=== PATIENT | female | born 1975 | race Caucasian/White ===

== ENCOUNTER 2019-10-21 16:06 | Outpatient (CLI) | payer BC, SELFPAY ==
[2019-10-21 16:18] LABS: Basophils Absolute Auto 0.05 K/mm3 (0.00-0.10); Basophils Percent Auto 0.8 % (0.0-1.0); Eosinophils Absolute Auto 0.11 K/mm3 (0.02-0.50); Eosinophils Percent Auto 1.7 % (1.0-6.0); Hematocrit 38.7 % (35.0-49.0); Hemoglobin 13.1 g/dL (12.0-15.0); Immature Granulocyte Absolute 0.02 K/mm3 (0.00-0.00); Immature Granulocyte Percent A 0.3 % (0.0-0.0); Lymphocytes Percent Auto 31.5 % (18.0-42.0); Mean Corpuscular HGB Conc 33.9 g/dL (32.0-36.0); Mean Corpuscular Volume 88.6 fL (78.0-102.0); Mean Platelet Volume 9.7 fl (9.2-11.8); Monocytes Absolute Auto 0.46 K/mm3 (0.10-0.90); Monocytes Percent Auto 6.9 % (2.0-11.0); Neutrophils Absolute Auto 3.9 K/mm3 (1.7-7.2); Neutrophils Percent Auto 58.8 % (50.0-70.0); Platelet Count Result 296 K/mm3 (150-420); Red Blood Count 4.37 M/mm3 (4.20-5.40); Red Cell Distribution Width 12.2 % (11.6-14.4); White Blood Count 6.7 K/mm3 (4.8-10.8)
[2019-10-21 17:30] LABS: Alanine Aminotransferase 24 U/L (14-59); Albumin Level 4.2 g/dL (3.4-5.0); Alkaline Phosphatase 64 U/L (46-116); Aspartate Amino Transferase 25 U/L (15-37); Bilirubin,Total 0.5 mg/dL (0.00-1.00); Blood Urea Nitrogen 12 mg/dL (7-18); Calcium 9.1 mg/dL (8.5-10.1); Carbon Dioxide 25 mmol/L (21-32); Chloride 105 mmol/L (98-108); Cholesterol 220 mg/dL (0-200); Estimated Glomerular Filt Rate > 60; Glucose 87 mg/dL (70-99); HDL Direct 72 mg/dL (40-60); LDL Cholesterol Calculated 134 mg/dL (<130); Osmolality Calculated 290 mOsm/kg (285-295); Sodium 141 mmol/L (136-145); Total Protein 7.6 g/dL (6.4-8.2); Triglycerides 71 mg/dL (0-150)
[2019-10-23 20:14] LABS: Vitamin D 25 Hydroxy 29 ng/mL (30-100)
== END 2019-10-21 16:07 | disposition home or self-care (01) ==
LOC: CHSLAB 16:09
PROVIDERS: PCP Nurse Practitioner Family; Visit Provider Nurse Practitioner Family
DX: R03.0 Elevated blood-pressure reading, without diagnosis of hypertension (principal); E66.9 Obesity, unspecified; R73.01 Impaired fasting glucose
CPT/HCPCS: 36415; 80053; 80061; 82306; 83036; 85025

== ENCOUNTER 2020-03-13 15:04 | Outpatient (CLI) | payer BC, SELFPAY ==
[2020-03-13 16:08] LABS: Thyroid Stimulating Hormone Reflex 2.35 u/IU/mL (0.36-3.74)
== END 2020-03-13 15:05 | disposition home or self-care (01) ==
LOC: CHSLAB 15:06
PROVIDERS: PCP Family Medicine; Visit Provider Family Medicine
DX: R03.0 Elevated blood-pressure reading, without diagnosis of hypertension (principal)
CPT/HCPCS: 36415; 84443

== ENCOUNTER 2021-11-16 11:50 | Outpatient (CLI) | payer BC, SELFPAY ==
--- NOTE | ~2021-11-16 | MM_ITS ---
EXAMINATION: MM screening [facility] BI w freddie HISTORY: Screening TECHNIQUE: Craniocaudal and mediolateral oblique 3-D tomosynthesis images were obtained and synthetic 2-D images were generated. CAD analysis was submitted and interpreted. COMPARISON: 08/23/2016 BREAST PARENCHYMAL COMPOSITION: There are scattered areas of fibroglandular density. FINDINGS: There is no evidence of suspicious mass, calcification, or architectural distortion to sugg est malignancy in either breast. There has been no suspicious interval change. There is no longer coa rse calcification in the left breast, consistent with fat necrosis. IMPRESSION: 1. No mammographic evidence of malignancy. 2. Recommend routine screening mammography in one year. BI-RADS Category 1: Negative Reviewed, dictated and finalized at location A.
== END 2021-11-16 11:51 | disposition home or self-care (01) ==
LOC: CHSIMG 11:52
PROVIDERS: PCP Family Medicine; Visit Provider Obstetrics & Gynecology
DX: Z12.31 Encounter for screening mammogram for malignant neoplasm of breast (principal)
CPT/HCPCS: 77063; 77067

== ENCOUNTER 2021-12-09 09:46 | Outpatient (CLI) | payer BC, SELFPAY ==
[2021-12-09 10:05] LABS: Basophils Percent Auto 0.6 % (0.2-1.2); Eosinophils Absolute Auto 0.1 K/mm3 (0-0.3); Hematocrit 39.9 % (37.0-47.0); Hemoglobin 12.7 g/dL (12.0-15.0); Immature Granulocyte Absolute 0.01 K/mm3 (0.00-0.031); Immature Granulocyte Percent A 0.1 % (0-0.5); Lymphocytes Absolute Auto 1.84 K/mm3 (0.9-3.2); Lymphocytes Percent Auto 27.5 % (18.3-44.2); Mean Corpuscular HGB Conc 31.8 g/dl (32-36); Mean Corpuscular Hemoglobin 28.6 pg (26-34); Mean Corpuscular Volume 89.9 fl (80-100); Mean Platelet Volume 10.5 fl (7.4-10.4); Monocytes Absolute Auto 0.4 K/mm3 (0.1-0.6); Monocytes Percent Auto 6.3 % (2.6-8.5); Neutrophils Absolute Auto 4.3 K/mm3 (1.3-6.7); Neutrophils Percent Auto 64.5 % (45.5-73.1); Platelet Count Result 268 k/mm3 (150-375); Red Blood Count 4.44 M/mm3 (4.2-5.4); Red Cell Distribution Width 12.7 % (11.5-14.5); White Blood Count 6.7 K/mm3 (4.5-10.0)
== END 2021-12-09 09:47 | disposition home or self-care (01) ==
LOC: ANHSURGERY 09:51
PROVIDERS: PCP Family Medicine; Visit Provider Obstetrics & Gynecology
DX: R10.2 Pelvic and perineal pain (principal); Z01.818 Encounter for other preprocedural examination
CPT/HCPCS: 36415; 85025; 86850; 86900; 86901

== ENCOUNTER 2021-12-10 00:53 | Day surgery (SDC) | payer BC, SELFPAY ==
[2021-12-01 12:11] VITALS: BMI 33.0
--- NOTE | 2021-12-01 12:25 | PC.NURSE ---
Report to the Outpatient Waiting Room, entrance under the green pavilion located off [facility], at time 7:30 on date 12/10/21. OR Time: 9:30. - You and your visitor will be asked a series of questions to screen for COVID 19 for your protection. - A mask is required within the hospital. One visitor will be allowed to accompany the patient into the hospital. Patients visitor will be instructed to remain with patient at all times or leave the building. We will allow the visitor to come back to the postoperative area when patient is ready. Preoperative COVID Testing Requirements: No COVID Test needed if: (proof is required; if not received patient will have Rapid Test prior to entry) - Patient has received COVID Vaccine at least 14 days prior to procedure date or - Patient has positive COVID test result within last 90 days of surgery date. COVID Test needed if above criteria is not met Patients may have clear liquids (water, carbonated beverages, clear teas, apple juice) until 3 hours prior to surgery (6:30) with a maximum of 20 ounces. - No food from midnight until time of surgery Take the following medications with a SIP of water the morning of surgery: DOXYCYCLINE Medications to discontinue per physician: VITAMINS/SUPPLEMENTS Date to take last dose: 12/07/21 Please no make-up, nail slovenian, hairspray, perfume, deodorant, or body powder the day of surgery. No jewelry (including any body piercings) or valuables the day of surgery, leave them at home. Please take a shower or bath the night before, or the morning of, surgery with an antibacterial soap. Wear comfortable, loose fitting clothing. - Jewelry must be removed prior to entering the operating room. Rings and piercings that are not removed may be cut off. - The hospital will not accept responsibility for valuables. - Please leave all valuables, including medications, at home the day of surgery. If you are going home after surgery, a licensed jitney driver must drive you home. - NO public transportation without another adult. - We recommend that an adult stay with you for 24 hours following discharge. - We also recommend that you do not drive, make important decision, drink alcoholic beverages, or take any drugs that were not prescribed by your health care provider for at least 24 hours after your discharge time. Follow any additional instructions given to you from your surgeon. Telephone instructions given to JONO RADER and asked if any additional questions and then verbalized understanding. Patient advised to call surgeon office or pre surgery nurse liaison [phone] if any additional questions.
--- NOTE | 2021-12-09 08:26 | PM.IMHP ---
H&P: HPI History of Present Illness Date/Time: 12/09/21 08:26 45-year-old female admitted for robotic total vaginal hysterectomy and bilateral salpingectomy secondary to pelvic pain bleeding and dyspareunia. Risks and benefits reviewed including min exclusive of , aspiration pneumonia, bleeding, transfusion, perforation injury to bowel, bladder, ureter, or other internal organs with need for open laparotomy. She received the [employer] handout entitled hysterectomy as well as the [facility] handout. She had all questions answered and asked to proceed Chief Complaint: Pelvic pain Review of Systems Review of Systems: All systems reviewed & are unremarkable except as noted in HPI and below PMFSH Past Medical History Medical History Obesity, Class I, BMI 30-34.9 Sting of hornets, wasps, and bees causing poisoning and toxic reactions (05/04/17) Surgical History Surgical History H/O left knee surgery H/O: section Hx of breast reduction, elective Family History Family History Other Diabetes mellitus Family history of arthritis Family history of malignant neoplasm Family history of seizure disorder Hypertension Social History Social History Smoking status: Never smoker Alcohol intake: never Substance use: never Substance use type: does not use Additional living arrangements comments: has 2 children Additional occupation/education comments: [employer] Gender identity (if verbalized by the patient): Female Spiritual care concerns: No Meds Home Medications and Allergies Home Medications Medication Instructions Recorded Confirmed Type cholecalciferol (vitamin D3) 50 2,000 unit PO DAILY #90 cap 10/25/19 12/01/21 Rx mcg (2,000 unit) capsule doxycycline monohydrate 100 mg 100 mg PO DAILY cap 03/26/21 12/01/21 History capsule fexofenadine [Tereza] 180 mg PO DAILY 12/01/21 12/01/21 History Allergies Allergy/AdvReac Type Severity Reaction Status Date / Time Bee stings Allergy Intermediate Swelling Uncoded 12/01/21 12:09 Exam Const: General: no acute distress Eyes: General: appearance normal, both eyes and all related structures Neck: Neck: supple and no JVD Thyroid: thyroid normal Resp: Effort & Inspection: normal respiratory effort Auscultation: clear to auscultation bilaterally Cardio: Rate: regular rate Rhythm: regular rhythm GI: Inspection: non-distended GI Palp: Yes Soft to palpation, No Tenderness to palpation present (GI) and No Guarding due to palpation present (GI) Auscultation: normal bowel sounds : External Female Exam: normal external appearance Speculum Exam - Vagina: normal appearance of the vagina Speculum Exam - Cervix: normal appearance of the cervix Bimanual exam- vagina & uterus: enlarged and Uterine tenderness Bimanual Exam- Adnexa, other: normal adnexae Skin: General skin exam: no rashes or lesions noted Extrem: General: normal to inspection and no edema Psych: Mental Status: mental status grossly normal Affect: normal affect Assessment and Plan Additional Plan Impression: Pelvic pain/irregular bleeding/dyspareunia Plan: Robotic total hysterectomy and bilateral salpingectomy
[2021-12-10] VITALS (8 sets, daily range): BP systolic 120–142; BP diastolic 67–77; PULSE 43–72; RESP 12–20; TEMP 36.2–36.9; O2SAT 98–100
--- NOTE | 2021-12-10 07:19 | WPDHPUPDATE1 ---
History and Physical Update Update Date/Time: 12/10/21 07:19 History and Physical has been reviewed, including an updated exam of the patient. There are NO changes in the patient's condition. Risks, benefits, and alternatives have been discussed and questions answered. Patient agrees to proceed with procedure.
[2021-12-10] MEDS: ACETAMINOPHEN 500 MG TABLET 1000 MG PO (08:12)
[2021-12-10] MEDS: LACTATED RINGERS 1,000 ML 30 ML IV CONT ×2 (08:15→10:55)
[2021-12-10] MEDS: KETOROLAC 15 MG/ML VIAL (*BKC) IV PUSH (08:16)
--- NOTE | 2021-12-10 09:10 | P.PNAN_ITS ---
Anes - Initial Pre Proc Eval Procedure: Operation Date: 12/10/21 09:30 Proposed Procedures p Robotic Assisted Total Vaginal Hysterectomy with Bilateral Salpingectomy - Cain Redding MD Date/Time: 12/10/21 09:10 Surgeon: Cain Redding MD Pre Op Diagnosis: pelvic pain, uterine prolpase, bleeding Patient Data Age: 45 Gender: F Height: 1.63 m Weight: 86.45 kg Last Vital Signs Temp 36.6 C 12/10/21 07:33 Pulse 63 12/10/21 07:33 Resp 20 12/10/21 07:33 BP 120/71 12/10/21 07:33 Pulse Ox 99 12/10/21 07:33 Allergies Allergy/AdvReac Type Severity Reaction Status Date / Time Bee stings Allergy Intermediate Swelling Uncoded 12/10/21 07:37 Home Medications Medication Instructions Recorded Confirmed Type cholecalciferol (vitamin D3) 50 2,000 unit PO DAILY #90 cap 10/25/19 12/10/21 Rx mcg (2,000 unit) capsule doxycycline monohydrate 100 mg 100 mg PO DAILY cap 03/26/21 12/10/21 History capsule fexofenadine [Tereza] 180 mg PO DAILY 12/01/21 12/10/21 History hydrocodone-acetaminophen 1 tablet PO Q4H PRN #30 tablet 12/10/21 Rx Patient hx anesthesia problems: none Family hx anesthesia problems: none Results Review: All pre-operative results and documents have been reviewed as part of the pre-operative evaluation. [facility] Past Medical History Medical History (Updated 12/10/21 @ 07:20 by Cain Redding MD) Obesity, Class I, BMI 30-34.9 Sting of hornets, wasps, and bees causing poisoning and toxic reactions (05/04/17) Surgical History Surgical History H/O left knee surgery H/O: section Hx of breast reduction, elective Family History Family History Other Diabetes mellitus Family history of arthritis Family history of malignant neoplasm Family history of seizure disorder Hypertension Social History Social History Smoking status: Never smoker Alcohol intake: never Substance use: never Substance use type: does not use Living arrangements: with family Additional living arrangements comments: has 2 children Additional occupation/education comments: [employer] Gender identity (if verbalized by the patient): Female Spiritual care concerns: No Anes - Eval Final PreProcedure Day of Procedure 12/10/21 09:10 Patient weight: obese Heart: regular rate and rhythm Lungs: clear to auscultation Airway: Mallampati scale class II Neurological: alert and oriented Last oral intake: >/= 8 hours ASA classification: II Emergent: no Anesthetic plan: proceed Anesthesia type and monitoring: general Results Review: All pre-operative results and documents have been reviewed as part of the pre-operative evaluation. Informed Consent: The patient's anesthetic plan and its attendant risks and benefits were discussed with the patient/family/POA. Questions were solicited and answers provided to the satisfaction of the patient/family/POA.
--- NOTE | 2021-12-10 10:40 | W.PM.PROC2 ---
Procedure Note - Detailed Date of Procedure 12/10/21 Pre-op Diagnosis pelvic pain, uterine prolpase, bleeding Post-op Diagnosis Same Procedure Performed Robotic total vaginal hysterectomy salpingectomy Surgeon Cain Redding MD Anesthesia General Indications Is a 45-year-old female with prolapse pain bleeding refractory to medical therapy Findings Enlarged uterus. Normal-appearing tubes bilaterally. Fair amount of adhesions anteriorly Description of Procedure Patient is prepped draped in the normal sterile fashion placed in the dorsal lithotomy position. Under excellent general trach anesthesia weighted speculum placed in posterior fornix vagina. Anterior lip of the cervix grasped with a single-tooth tenaculum. The uterus sounded to 10cm. Serial dilatation with fragmented dilators performed followed by passage of the 10. DIDIER and the 2. 0.5 cold cup. Next the 16 Danish catheter was placed in the bladder and clear urine was noted. The weighted speculum and the single-tooth removed. Gloves were changed. A supraumbilical incision made the Veress needle passed in the abdomen. Abdomen filled with CO2 gas [id number]. The 8mm trocar advanced in the abdomen. Downside visualized no injury seen. Gas placed in the abdomen patient placed in Trendelenburg. Right and left lateral quadrant incision made 8mm trocars advanced under direct visualization assuring no injury. Right upper quadrant incision was made and the 8mm trocar advanced under direct visualization assuring no injury. The robot was docked. Attention was turned to the certified travel counselor. Multiple adhesions were seen anteriorly these were easily sharply dissected with the omentum to the anterior abdominal wall by using monopolar cautery. There was a fair amount of scarring from uterus to the anterior wall. Layer by layer this was sharply dissected with monopolar cautery until the bladder could be seen. The round ligament was clamped grasp on the left clamped, burned, cut in anteriorly a bladder flap formed by sharply dissecting the peritoneum and reflecting the bladder caudally away from the cervix and uterus to the opposite round ligament which was clamped, burned, cut. Next the left fallopian tube was skeletonized and sharply dissected away from the ovarian complex left attached to its uterine origination. In like fashion the right fallopian tube was removed by sharply dissecting it away from the ovarian complex and leaving it attached to the uterine origination. Next the left utero-ovarian ligament was skeletonized to conserve the left ovary this was clamped, burned, cut and brought to the level of the previously cut round ligament. In like fashion the right ovary was conserved by sharply dissecting the utero-ovarian ligament clamping burning cutting and bring it to the round ligament on the right. Next the left cardinal and broad ligaments were serially skeletonized clamping burning cutting and bringing this down laterally clogging cervix and uterus until you large uterine tortuous vessels were seen on the left these were individually clamped,, cut. The cardinal burned and broad ligaments on the right were serially skeletonized clamping burning cutting and hugging the cervix and uterus until the uterine vessels could be seen on the right these were sharp Sophie dissected by clamping burning cutting them individually. Blanching the uterus was noted in a colpotomy incision was made. Cervix uterus and tubes removed through the vagina. The vagina was then closed with continuous running 0V lock from lateral edge to lateral edge back to the midline. Irrigation undertaken until clear and all pedicles appeared dry. This was sprinkled with Mather term and the robot was undocked. The gas removed from the abdomen. The trocars removed and the incisions closed with 4 Monocryl and glue. The patient was awakened. All sponge, needle, instrument counts were correct. There were no immediate complica
[2021-12-10] MEDS: fentaNYL CITRATE INJ (*CRX) 100 MCG/2 ML VIAL 25 MCG IV PUSH ×2 (11:35→11:38)
--- NOTE | 2021-12-10 12:31 | PC.NURSE ---
This patient, Yesenia Angel, was received from PACU per bed on 12/10/21 at 1200. Patient/family oriented to unit policies and routines
[2021-12-10] MEDS: DEXTROSE 5%/LACTATED RINGERS 1,000 ML 125 ML IV CONT (12:38)
[2021-12-10] MEDS: KETOROLAC 30 MG/ML VIAL (*BKC) IV PUSH ×2 (14:15→20:15)
[2021-12-10] MEDS: HYDROcodone/acetaminophen (*CRX) 5-325 MG TABLET 1 TAB PO ×2 (14:15→20:16)
[2021-12-10] MEDS: DOCUSATE SODIUM 100 MG CAPSULE PO (20:16)
[2021-12-11 01:30] VITALS: BP 98/45; PULSE 58; RESP 16; TEMP 37; O2SAT 99
[2021-12-11 04:17] VITALS: BP 98/53; PULSE 60; RESP 14; TEMP 36.5; O2SAT 98
[2021-12-11 05:41] LABS: Basophils Percent Auto 0.2 % (0.2-1.2); Eosinophils Absolute Auto 0.1 K/mm3 (0-0.3); Eosinophils Percent Auto 0.5 % (0-4.4); Hematocrit 34.4 % (37.0-47.0); Immature Granulocyte Absolute 0.03 K/mm3 (0.00-0.031); Immature Granulocyte Percent A 0.3 % (0-0.5); Immature Platelet Fraction Pct 5.3 % (0.9-11.2); Lymphocytes Absolute Auto 2.51 K/mm3 (0.9-3.2); Lymphocytes Percent Auto 22.9 % (18.3-44.2); Mean Corpuscular Hemoglobin 29.6 pg (26-34); Mean Corpuscular Volume 92.5 fl (80-100); Mean Platelet Volume 11.8 fl (7.4-10.4); Monocytes Absolute Auto 0.7 K/mm3 (0.1-0.6); Monocytes Percent Auto 6.6 % (2.6-8.5); Neutrophils Absolute Auto 7.6 K/mm3 (1.3-6.7); Neutrophils Percent Auto 69.5 % (45.5-73.1); Platelet Count Result 237 k/mm3 (150-375); Red Blood Count 3.72 M/mm3 (4.2-5.4)
--- NOTE | 2021-12-11 06:14 | PM.DS ---
DS: Admitting Diagnosis Discharge Date for 12/11/2021 Admitting Diagnosis pelvic pain /enlarged uterus/dyspareunia DS: Summary Hospital Course Hospital Course: patient was admitted for total vaginal hysterectomy and bilateral salpingectomy. Procedure was unremarkable. Prieb see the operative report for full details. She remained afebrile. She was up, voiding difficulty, ambulating, generally without complaints. Time Spent with Patient Time attestation: Total time spent providing and/or coordinating discharge services: Exam Const: General: no acute distress Eyes: General: appearance normal, both eyes and all related structures Neck: Neck: supple and no JVD Thyroid: thyroid normal Resp: Effort & Inspection: normal respiratory effort Auscultation: clear to auscultation bilaterally Cardio: Rate: regular rate Rhythm: regular rhythm GI: Inspection: non-distended GI Palp: Yes Soft to palpation, No Tenderness to palpation present (GI) and No Guarding due to palpation present (GI) Auscultation: normal bowel sounds : General: Yes bladder normal to palpation External Female Exam: normal external appearance Speculum Exam - Vagina: normal vaginal discharge and No vaginal bleeding Speculum Exam - Cervix: nontender Bimanual exam- vagina & uterus: bladder normal to palpation and No Cervical tenderness present OB/external & speculum: No vaginal bleeding Skin: General skin exam: no rashes or lesions noted Extrem: General: normal to inspection and no edema Psych: Mental Status: mental status grossly normal Affect: normal affect DS: Data Data Completed and Pending Pending studies at discharge: Pending at discharge 12/10/21 10:12 Surgical [PTH] Routine Labs on day of discharge: Labs from last 24 hours 12/11/21 04:29 WBC Pending RBC Pending Hgb Pending Hct Pending MCV Pending MCH Pending MCHC Pending RDW Pending Plt Count Pending MPV Pending Immature Gran % (Auto) Pending Neut % (Auto) Pending Lymph % (Auto) Pending Weber % (Auto) Pending Eos % (Auto) Pending Baso % (Auto) Pending Lymph # (Auto) Pending Weber # (Auto) Pending Eos # (Auto) Pending Baso # (Auto) Pending Abs Immat Gran (auto) Pending Absolute Neuts (auto) Pending Absolute Nucleated RBC Pending Nucleated RBC % Pending Discharge Plan Discharge Patient Disposition: Home, Self-Care Stand Alone Forms: General Discharge Instructions Discharge Medications: New hydrocodone-acetaminophen 5-325 mg tablet 1 tablet PO Q4H PRN (Reason: pain) Qty: 30 RF: 0 No Action doxycycline monohydrate 100 mg capsule 100 mg PO DAILY RF: 0 fexofenadine [Tereza] 180 mg Tablet 180 mg PO DAILY RF: 0 cholecalciferol (vitamin D3) 50 mcg (2,000 unit) capsule 2,000 unit PO DAILY Qty: 90 RF: 1
--- NOTE | 2021-12-11 06:15 | PM.GYNPNOP ---
NURSING INFORMATICS ANALYST - A/P Postoperative Procedures: Procedures Operation Date: 12/10/21 09:30 Actual Procedure Side Surgeon p Robotic Assisted Total Vaginal Hysterectomy with Bilateral Salpingectomy Bilateral Cain Redding MD Time Spent With Patient Time: Total time spent is greater than 50% in coordination of care (as documented) at patient's floor/unit and/or counseling patient: Time with patient: less than 15 minutes NURSING INFORMATICS ANALYST- PN:Subj Post-Op Subjective Date/time seen: 12/11/21 06:15 Subjective: patient has no complaints and patient desires discharge Review of Systems Review of Systems: All systems reviewed & are unremarkable except as noted in HPI and below Exam Const: General: no acute distress Eyes: General: appearance normal, both eyes and all related structures Neck: Neck: supple and no JVD Thyroid: thyroid normal Resp: Effort & Inspection: normal respiratory effort Auscultation: clear to auscultation bilaterally Cardio: Rate: regular rate Rhythm: regular rhythm GI: Inspection: non-distended GI Palp: Yes Soft to palpation, No Tenderness to palpation present (GI) and No Guarding due to palpation present (GI) Auscultation: normal bowel sounds : General: Yes bladder normal to palpation External Female Exam: normal external appearance Speculum Exam - Vagina: normal vaginal discharge and No vaginal bleeding Speculum Exam - Cervix: nontender Bimanual exam- vagina & uterus: bladder normal to palpation and No Cervical tenderness present OB/external & speculum: No vaginal bleeding Skin: General skin exam: no rashes or lesions noted Extrem: General: normal to inspection and no edema Psych: Mental Status: mental status grossly normal Affect: normal affect NURSING INFORMATICS ANALYST - PN: Obj Data Vital Signs Vital Signs: Vital Signs - 24 hr 12/10/21 07:33 12/10/21 10:55 12/10/21 11:10 Temperature 97.9 F 97.1 F L Pulse Rate 63 72 43 L Respiratory Rate 20 14 12 Blood Pressure 120/71 123/67 142/71 H Pulse Oximetry 99 100 100 12/10/21 11:25 12/10/21 11:40 12/10/21 12:10 Temperature 97.3 F L Pulse Rate 48 L 48 L 48 L Respiratory Rate 15 13 15 Blood Pressure 136/72 128/72 126/75 Pulse Oximetry 100 100 98 12/10/21 17:00 12/10/21 19:00 12/11/21 01:30 Temperature 97.7 F 98.5 F 98.6 F Pulse Rate 54 L 53 L 58 L Respiratory Rate 18 16 16 Blood Pressure 127/76 132/77 98/45 L Pulse Oximetry 99 99 12/11/21 04:17 Temperature 97.7 F Pulse Rate 60 Respiratory Rate 14 Blood Pressure 98/53 L Pulse Oximetry 98 Intake/Output Intake/Output: Intake & Output 12/08/21 12/09/21 12/10/21 12/11/21 23:59 23:59 23:59 23:59 Intake Total 1050 Output Total 685 Balance 365 Meds/Results Medications: Active Medications Generic Name Dose Route Start Last Admin Trade Name Freq PRN Reason Stop Dose Admin Hydrocodone Bitart/Acetaminophen 1 tab 12/10/21 11:50 12/10/21 20:16 Hydrocodone/Acetaminophen (*Crx) 5-325 Mg Tablet PO 1 tab Q3H PRN Administration Pain Rated 5 or Less Hydrocodone Bitart/Acetaminophen 1 tab 12/10/21 11:50 Hydrocodone/Acetaminophen (*Crx) 10-325 Mg Tablet PO Q3H PRN Pain Rated 6 or Greater Docusate Sodium 100 mg 12/10/21 17:00 12/10/21 20:16 Docusate Sodium 100 Mg Capsule PO 100 mg BID ASUNCION Administration Enoxaparin Sodium 40 mg 12/11/21 09:00 Enoxaparin 40 Mg/0.4 Ml Syringe SUB-Q DAILY ASUNCION Dextrose/Lactated Ringer's 1,000 mls @ 125 mls/hr 12/10/21 11:50 12/10/21 20:28 Dextrose 5%/Lactated Ringers IV CONT Not Given .Q8H ASUNCION Ibuprofen 600 mg 12/10/21 11:50 Ibuprofen 600 Mg Tablet PO Q6H PRN Cramping Ketorolac Tromethamine 30 mg 12/10/21 11:50 12/10/21 20:15 Ketorolac 30 Mg/Ml Vial (*Bkc) IV PUSH 12/15/21 11:49 30 mg Q6H PRN Administration Pain Rated 4-6 Naloxone HCl 0.1 mg 12/10/21 11:50 Naloxone Hcl 0.4 Mg/Ml Vial IV PUSH Q2M PRN Respiratory rate less than 10 Ondansetron
[2021-12-11] MEDS: ENOXAPARIN 40 MG/0.4 ML SYRINGE SUB-Q (06:52)
[2021-12-11] MEDS: DOCUSATE SODIUM 100 MG CAPSULE PO (06:52)
[2021-12-11 06:55] VITALS: BP 113/69; PULSE 52; RESP 18; TEMP 36.6
== END 2021-12-11 10:45 | disposition home or self-care (01) ==
LOC: ANHSURGERY 07:20 → ANHOB2 12:03
PROVIDERS: PCP Family Medicine; Visit Provider Obstetrics & Gynecology
PROC: (CPT 58552; principal; 2021-12-10 09:30)
DX: R10.2 Pelvic and perineal pain (principal); N81.4 Uterovaginal prolapse, unspecified; N73.6 Female pelvic peritoneal adhesions (postinfective); N72 Inflammatory disease of cervix uteri; N88.8 Other specified noninflammatory disorders of cervix uteri; N85.01 Benign endometrial hyperplasia; N83.8 Other noninflammatory disorders of ovary, fallopian tube and broad ligament; N93.9 Abnormal uterine and vaginal bleeding, unspecified; N94.10 Unspecified dyspareunia; E66.9 Obesity, unspecified; Z68.32 Body mass index [BMI] 32.0-32.9, adult
CPT/HCPCS: 58552; S2900; 36415; 85025; 85055; 88307; 99199; A9270; J1100; J1650; J1885; J2250; J2405; J2704; J2710; J3010; J7030; J7120; J7121

== ENCOUNTER 2023-01-05 07:24 | Outpatient (CLI) | payer BC, SELFPAY ==
--- NOTE | ~2023-01-05 | MM_ITS ---
EXAMINATION: MM screening [facility] BI w freddie HISTORY: Screening mammogram TECHNIQUE: Craniocaudal and mediolateral oblique 3-D tomosynthesis images were obtained and synthetic 2-D images were generated. CAD analysis was submitted and interpreted. COMPARISON: 11/16/2021, 08/23/2016 BREAST PARENCHYMAL COMPOSITION: There are scattered areas of fibroglandular density. FINDINGS: Stable benign left breast calcifications are noted. No suspicious mass, calcification, or a rchitectural distortion are identified in either breast to suggest malignancy. There has been no susp icious interval change. IMPRESSION: 1. No mammographic evidence of malignancy. 2. Recommend routine screening mammography in one year. BI-RADS Category 2: Benign finding(s). Reviewed, dictated and finalized at location A.
== END 2023-01-05 07:25 | disposition home or self-care (01) ==
LOC: CHSIMG 07:27
PROVIDERS: PCP Family Medicine; Visit Provider Obstetrics & Gynecology
DX: Z12.31 Encounter for screening mammogram for malignant neoplasm of breast (principal)
CPT/HCPCS: 77063; 77067

== ENCOUNTER 2023-02-15 10:45 | Outpatient (CLI) | payer BC, SELFPAY ==
[2023-02-15 10:57] LABS: Basophils Absolute Auto 0.04 K/mm3 (0.00-0.10); Basophils Percent Auto 0.6 % (0.0-1.0); Eosinophils Absolute Auto 0.07 K/mm3 (0.02-0.50); Eosinophils Percent Auto 1.1 % (1.0-6.0); Hematocrit 40.2 % (35.0-49.0); Hemoglobin 13.4 g/dL (12.0-15.0); Immature Granulocyte Absolute 0.02 K/mm3 (0.00-0.00); Immature Granulocyte Percent A 0.3 % (0.0-0.0); Lymphocytes Absolute Auto 2.17 K/mm3 (1.10-4.50); Lymphocytes Percent Auto 34.9 % (18.0-42.0); Mean Corpuscular HGB Conc 33.3 g/dL (32.0-36.0); Mean Corpuscular Hemoglobin 30.1 pg (27.0-31.0); Mean Corpuscular Volume 90.3 fL (78.0-102.0); Mean Platelet Volume 9.7 fl (9.2-11.8); Monocytes Absolute Auto 0.38 K/mm3 (0.10-0.90); Monocytes Percent Auto 6.1 % (2.0-11.0); Neutrophils Absolute Auto 3.5 K/mm3 (1.7-7.2); Platelet Count Result 249 K/mm3 (150-420); Red Blood Count 4.45 M/mm3 (4.20-5.40); Red Cell Distribution Width 12.2 % (11.6-14.4); White Blood Count 6.2 K/mm3 (4.8-10.8)
[2023-02-15 11:39] LABS: Alanine Aminotransferase 45 U/L (14-59); Alkaline Phosphatase 46 U/L (46-116); Anion Gap 9 mmol/L (8-16); Aspartate Amino Transferase 45 U/L (15-37); Bilirubin,Total 0.5 mg/dL (0.00-1.00); Blood Urea Nitrogen 17 mg/dL (7-18); Calcium 8.7 mg/dL (8.5-10.1); Carbon Dioxide 27 mmol/L (21-32); Chloride 104 mmol/L (98-108); Estimated Glomerular Filt Rate > 60; Glucose 92 mg/dL (70-99); Osmolality Calculated 291 mOsm/kg (285-295); Potassium 4.3 mmol/L (3.5-5.1); Sodium 140 mmol/L (136-145); Total Protein 7.4 g/dL (6.4-8.2)
== END 2023-02-15 10:46 | disposition home or self-care (01) ==
LOC: CHSLAB 10:47
PROVIDERS: PCP Family Medicine; Visit Provider Physician Assistant Surgical
DX: M17.12 Unilateral primary osteoarthritis, left knee (principal); Z79.1 Long term (current) use of non-steroidal anti-inflammatories (NSAID)
CPT/HCPCS: 36415; 80053; 85025

== ENCOUNTER 2023-03-29 13:41 | Outpatient (CLI) | payer BC, SELFPAY ==
[2023-03-29 13:55] LABS: Basophils Absolute Auto 0.04 K/mm3 (0.00-0.10); Basophils Percent Auto 0.6 % (0.0-1.0); Eosinophils Absolute Auto 0.05 K/mm3 (0.02-0.50); Eosinophils Percent Auto 0.7 % (1.0-6.0); Hematocrit 38.9 % (35.0-49.0); Hemoglobin 12.5 g/dL (12.0-15.0); Immature Granulocyte Absolute 0.01 K/mm3 (0.00-0.00); Immature Granulocyte Percent A 0.1 % (0.0-0.0); Lymphocytes Absolute Auto 2.14 K/mm3 (1.10-4.50); Lymphocytes Percent Auto 32.1 % (18.0-42.0); Mean Corpuscular HGB Conc 32.1 g/dL (32.0-36.0); Mean Corpuscular Hemoglobin 29.3 pg (27.0-31.0); Mean Corpuscular Volume 91.3 fL (78.0-102.0); Mean Platelet Volume 9.7 fl (9.2-11.8); Monocytes Absolute Auto 0.43 K/mm3 (0.10-0.90); Monocytes Percent Auto 6.4 % (2.0-11.0); Neutrophils Percent Auto 60.1 % (50.0-70.0); Platelet Count Result 272 K/mm3 (150-420); Red Blood Count 4.26 M/mm3 (4.20-5.40); Red Cell Distribution Width 11.9 % (11.6-14.4); White Blood Count 6.7 K/mm3 (4.8-10.8)
[2023-03-29 14:40] LABS: Alanine Aminotransferase 14 U/L (14-59); Albumin Level 3.8 g/dL (3.4-5.0); Alkaline Phosphatase 54 U/L (46-116); Anion Gap 10 mmol/L (8-16); Aspartate Amino Transferase 23 U/L (15-37); Bilirubin,Total 0.5 mg/dL (0.00-1.00); Blood Urea Nitrogen 17 mg/dL (7-18); Carbon Dioxide 27 mmol/L (21-32); Chloride 104 mmol/L (98-108); Estimated Glomerular Filt Rate > 60; Glucose 98 mg/dL (70-99); Osmolality Calculated 293 mOsm/kg (285-295); Sodium 141 mmol/L (136-145); Total Protein 6.9 g/dL (6.4-8.2)
== END 2023-03-29 13:42 | disposition home or self-care (01) ==
LOC: CHSLAB 13:46
PROVIDERS: PCP Family Medicine; Visit Provider Physician Assistant Surgical
DX: M17.12 Unilateral primary osteoarthritis, left knee (principal); Z79.1 Long term (current) use of non-steroidal anti-inflammatories (NSAID)
CPT/HCPCS: 36415; 80053; 85025

== ENCOUNTER 2024-01-09 08:27 | Outpatient (CLI) | payer BC, SELFPAY ==
--- NOTE | ~2024-01-09 | MM_ITS ---
EXAMINATION: MM screening [facility] BI w freddie HISTORY: Screening TECHNIQUE: Craniocaudal and mediolateral oblique 3-D tomosynthesis images were obtained and synthetic 2-D images were generated. CAD analysis was submitted and interpreted. COMPARISON: Comparison to multiple prior studies sequentially, with oldest reviewed study dated 08/23. BREAST PARENCHYMAL COMPOSITION: Not dense: There are scattered areas of fibroglandular density. FINDINGS: There is no evidence of suspicious mass, calcification, or architectural distortion to sugg est malignancy in either breast. There has been no suspicious interval change. IMPRESSION: 1. No mammographic evidence of malignancy. 2. Recommend routine screening mammography in one year. BI-RADS Category 1: Negative Reviewed, dictated and finalized at location B.
== END 2024-01-09 08:28 | disposition home or self-care (01) ==
LOC: CHSIMG 08:28
PROVIDERS: PCP Family Medicine; Visit Provider Family Medicine
DX: Z12.31 Encounter for screening mammogram for malignant neoplasm of breast (principal)
CPT/HCPCS: 77063; 77067

== ENCOUNTER 2025-01-15 12:51 | Outpatient (CLI) | payer BC, SELFPAY ==
--- NOTE | ~2025-01-15 | MM_ITS ---
EXAMINATION: MM screening joshua BI w freddie HISTORY: Screening TECHNIQUE: Craniocaudal and mediolateral oblique 3-D tomosynthesis images were obtained and synthetic 2-D images were generated. CAD analysis was submitted and interpreted. COMPARISON: 02/17/2022 and 05/20/2016 BREAST PARENCHYMAL COMPOSITION: There are scattered areas of fibroglandular density. FINDINGS: Benign dystrophic calcifications bilaterally related to fat necrosis, unchanged. There is n o evidence of suspicious mass, calcification, or architectural distortion to suggest malignancy in ei ther breast. There has been no suspicious interval change. IMPRESSION: 1. No mammographic evidence of malignancy. 2. Recommend routine screening mammography in one year. BI-RADS Category 2: Benign finding(s). Reviewed, dictated and finalized at location B.
--- OUTSIDE RECORDS SUMMARY | 2025-01-15 12:56 | XMS_ITS | Data Portability ---
Author Organization [place] [facility], Main Office Address [address] [place] [address] Care Team Providers Care Canal Driver Name Role Phone MARYAM PERSON Primary Care Provider [phone] MARYAM PERSON Referring Provider [phone] Assessment Encounter Date Assessment Date Assessment LastModified by Organization Details LastModified Time 08/18/2023 08/18/2023 Patient has moderate primary osteoarthritis left knee joint as described. Under sterile conditions I injected the patient's left knee joint in the office with 4 cc 0.5% bupivacaine and 20 mg of Kenalog. Patient tolerated the procedure well. We will see her back as needed, she will continue with current conservative measures call for any further problems difficulties or questions she voiced understanding and agrees with the above plan. Not available 08/18/2023 14:20:59 11/24/2023 11/24/2023 The patient has moderately severe primary osteoarthritis left knee joint she has significant narrowing in the medial compartment patellofemoral articulation also shows some near gilb-vd-sbom changes on the corners of the joint. We talked about treatment options today she wanted proceed with cortisone therefore under sterile conditions I injected the patient's left knee joint in the office with 4 cc 0.5% Marcaine and 20 mg of Kenalog. Patient tolerated the procedure well. We will see her back as needed we can do this again in 3 months if necessary she has a bit young for total knee arthroplasty she would like to put it off as long as possible we talked about proper care of her knee today in detail as well including low-impact exercise she voiced understanding agrees above plan she will call for any further problems difficulties or questions. She will continue with me Not available 11/24/2023 11:20:52 02/22/2024 02/22/2024 The patient has moderately severe primary osteoarthritis left knee. Under sterile conditions I injected the patient's left knee joint in the office today her request with 4 cc 0.5% Marcaine and 20 mg of Kenalog. Patient tolerated the procedure well. I will see her back as needed we can do this again as soon as 3 months if necessary hopefully it will last longer. She will continue with current conservative measures call for any further problems difficulties or questions she voiced understanding and agrees with the above plan. Not available 02/22/2024 11:25:25 05/24/2024 05/24/2024 The patient has moderately severe primary osteoarthritis left knee joint. At her request under sterile conditions I injected the patient's left knee joint in the office with 4 cc of 0.5% bupivacaine and 20 mg of Kenalog. Patient tolerated the procedure well. I will see her back in 3 months if necessary we can do another shot at that point if she would like otherwise we will see how she does. She also needs a refill on her meloxicam 15 mg daily this was sent to her pharmacy today with a refill as well. She will call for any further problems difficulties or questions she voiced understanding and agrees with the above plan. Not available 05/24/2024 10:43:40 11/22/2024 11/22/2024 By today's x-ray exam the patient is noted have moderately severe primary osteoarthritis left knee joint with significant narrowing in the medial compartment and hypertrophic changes around the patellofemoral articulation and narrowing here as well. At her request under sterile conditions I injected the patient's left knee joint in the office with 4 cc of 0.5% bupivacaine and 20 mg of Kenalog. The patient tolerated the procedure well. We will get her a refill on meloxicam 15 mg daily she is going to try to modify her activities a bit to help with the knee pain. She voiced understanding and agreed with the above plan I will see her back as needed she will call for any further problems difficulties or questions. Not available 11/22/2024 11:15:38 Plan of Treatment Reminders Order Date Submit Date Provider Last Modified By Organization Details Last Modified Time Details Appointments None recorded. Lab None recorded. Referral None recorded. Procedures injection/a spiration joint/bursa (PROC) 2024 025 [email or web address] In-Office Order, Internal Use Only DO Not Attach Compendium DO Not Attach Compendium, Do Not Delete/merge, [id number] 10:48:06 injection/a spiration joint/bursa (PROC) 2023 024 [email or web address] In-Office Order, Internal Use Only DO Not Attach Compendium DO Not Attach Compendium, Do Not Delete/merge, [id number] 10:32:43 injection/a spiration joint/bursa (PROC) - in office procedure, administere d by provider 2023 024 [email or web address] In-Office Order, Internal Use Only DO Not Attach Compendium DO Not Attach Compendium, Do Not Delete/merge, [id number] 11:03:03 injection/a spiration joint/bursa (PROC) 2023 024 [email or web address] In-Office Order, Internal Use Only DO Not Attach Compendium DO Not Attach Compendium, Do Not Delete/merge, [id number] 4 10:53:20 injection/a spiration joint/bursa (PROC) 2023 024 [email or web address] In-Office Order, Internal Use Only DO Not Attach Compendium DO Not Attach Compendium, Do Not Delete/merge, [id number] 13:55:47 Surgeries None recorded. Imaging XR, knee 2024 025 [email or web address] [facility] [place], [address], [place], [address], 5 11:17:47 XR, knee 2023 024 [facility] [place], [address], [place], [address], 4 12:48:10 Medication Orders bupivacaine HCl 0.5 % (5 mg/mL) injection solution 2024 025 [facility] [place], [address], [place], [address], 5 10:55:12 Kenalog 10 mg/mL suspension for injection 2024 025 [facility] [place], [address], [place], [address], 5 10:55:12 meloxicam 15 mg tablet 2024 025 [facility] [place], [address], [place], [address], 5 11:18:12 bupivacaine HCl 0.5 % (5 mg/mL) injection solution 2023 024 [facility] [place], [address], [place], [address], 4 10:33:26 Kenalog 10 mg/mL suspension for injection 2023 024 [facility] [place], [address], [place], [address], 4 10:33:26 meloxicam 15 mg tablet 2023 024 [facility] [place], [address], [place], [address], 4 11:44:51 Kenalog 10 mg/mL suspension for injection 2023 024 [facility] [place], [address], [place], [address], 4 11:13:53 Marcaine (PF) 0.5 % (5 mg/mL) injection solution 2023 024 [email or web address] [facility] [place], [address] [place], [address], 5 10:54:45 meloxicam 15 mg tablet 2023 024 [facility] [place], [address] [place], [address], 4 12:48:10 Kenalog 10 mg/mL suspension for injection 2023 024 Not available 4 12:48:10 Marcaine (PF) 0.5 % (5 mg/mL) injection solution 2023 024 [email or web address] Not available 5 10:54:45 bupivacaine HCl 0.5 % (5 mg/mL) injection solution 2023 024 [email or web address] [facility] [place], [address] [place], [address], 4 10:47:58 Kenalog 10 mg/mL suspension for injection 2023 024 [email or web address] [facility] [place], [address] [place], [address], 4 10:48:08 Patient TargetsNo targets recorded. Patient InstructionsNo instructions recorded. Reason for Referral None Reported. Results Created Date Observation Date Name Description Value Unit Range Abnormal Flag Note LastModifiedBy Organization Detail LastModifiedTime 11/24/19 24 XR, knee No observ ation record ed. [facility] [place] [address], [place], [address], 11/24/2023 11:21:43 11/23/19 25 XR, knee No observ ation record ed. [facility] [place] [address], [place], [address], 11/22/2024 11:16:57 Result Notes None recorded. Problems Name Problem SNOMED Code Status Onset Date Resolution Date Notes Provider Name and Address Organization Details Recorded Time Pain of right knee joint 2343001219423 00 Active 2022 Not Available [facility] 3 10:40:27 Pain of left knee joint 1546120723884 07 Active 2022 Not Available [facility] 3 10:40:27 Osteoarthr itis of left knee joint 5006698058308 09 Active 2022 Roz Lundy, CIVILIAN JAIL OFFICER null, [place] [employer] [facility] [employer] [facility] 3 11:02:36 Problem Notes None recorded. Procedures Surgical History Date Name Laterality Status Provider Name and Address Organization Details Recorded Time Knee Surgery completed Jenn Godoy CNA [employer] [facility] [employer] [facility] 11/22/2024 10:56:17 Hysterectomy completed Not Available [facility] 10/12/2022 10:39:54 section completed Jenn Gonzales ass [employer] [facility] [employer] [facility] 11/22/2024 10:56:35 Breast reduction completed Jenn G ass [employer] [facility] [employer] [facility] 11/22/2024 10:56:48 Imaging Results None recorded. Procedure Notes None recorded. Medical Equipment None Reported. Allergies No known drug allergies Medications Name Sig Start Date Stop Date Status Note LastModified by Organization Details LastModified Time ketoconazol e 2 % shampoo 10/14 completed Not Available Not Available Not Available hydrocodone 5 mg-acetamin ophen 325 mg tablet 10/14 completed Not Available Not Available Not Available meloxicam 15 mg tablet Take 1 tablet every day by oral route. 2024 active Not Available Not Available Not Avai lable bupivacaine HCl 0.5 % (5 mg/mL) injection solution Take 20 mg by injection route. 2024 active Not Available Not Available Not Avai lable Kenalog 10 mg/mL suspension for injection Take 20 mg by injection route. 2024 active [facility]: [phone]- [phone] Not Available Not Available Not Available doxycycline monohydrate 100 mg capsule 11/23 completed Not Available Not Available Not Available methylpredn isolone 4 mg tablets in a dose pack 10/14 completed Not Available Not Available Not Available ketoconazol e 2 % topical cream 11/23 completed Not Available Not Available Not Available Marcaine (PF) 0.5 % (5 mg/mL) injection solution Take 8 mL by injection route. 11/22 completed Not Available Not Available Not Available Vitamin D active Not Available Not Carmen ilable Not Available ropivacaine (PF) 5 mg/mL (0.5 %) injection solution in office 11/23 completed [facility] [phone] Not Available Not Available Not Available Vitals Date Recorded Body height Body mass index (BMI) Body weight Provider Name and Address Organization Details Last Updated DateTime 08/18/2023 157.48 cm 32.9 kg/m2 15689.63 g EMY HaqA Cherry 08/18/2023 13:54:11 Date Recorded Body height Body mass index (BMI) Body weight Provider Name and Address Organization Details Last Updated DateTime 11/22/2024 157.48 cm 31.1 kg/m2 44451.7 g Jenn Jayne, [employer] Cherry 11/22/2024 10:54:25 Date Recorded Body height Body mass index (BMI) Body weight Provider Name and Address Organization Details Last Updated DateTime 11/24/2023 157.48 cm 34.8 kg/m2 52957.55 g Bertha Farmer Cherry 11/24/2023 10:47:41 Date Recorded Body height Body mass index (BMI) Body weight Provider Name and Address Organization Details Last Updated DateTime 02/22/2024 157.48 cm 34.4 kg/m2 63634.37 g MACI Badillo Cherry 02/22/2024 11:00:44 Date Recorded Body height Body mass index (BMI) Body weight Provider Name and Address Organization Details Last Updated DateTime 05/24/2024 157.48 cm 32 kg/m2 45142.66 g Jenn Godoy, [employer] Cherry 05/24/2024 10:30:14 Social History None recorded. Functional Status Question Answer Note LastModified by Organization D etails LastModified Time What is your level of alcohol consumption? None [email or web address] Information not available 11/22/2024 Mental Status None recorded. Family History Relationship Description Onset Age of this Age Resolved Age Notes LastModified by Organization Details LastModified Time Maternal Aunt Family history of malignant neoplasm [email or web address] [id number] Not available 10/12/2022 10:39:57 Maternal Aunt Family history of malignant neoplasm MIGRATION.468 [id number] Not available 10/13/2022 01:47:23 Paternal Aunt Family history of malignant neoplasm MIGRATION.062 [id number] Not available 10/12/2022 10:39:57 Paternal Aunt Family history of malignant neoplasm MIGRATION.804 [id number] Not available 10/13/2022 01:47:23 Mother Hypertensive disorder MIGRATION.921 [id number] Not available 10/12/2022 10:39:57 Father Hypertensive disorder MIGRATION.722 [id number] Not available 10/12/2022 10:39:57 Father Diabetes mellitus MIGRATION.288 [id number] Not available 10/12/2022 10:39:57 Sister Hypertensive disorder MIGRATION.662 [id number] Not available 10/12/2022 10:39:57 Sister Hypertensive disorder MIGRATION.667 [id number] Not available 10/13/2022 01:47:23 Maternal Grandfather Diabetes mellitus MIGRATION.450 [id number] Not available 10/12/2022 10:39:57 Maternal Grandmother Family history of malignant neoplasm [email or web address] Not available 2024 10:55:10 Paternal Grandmother Family history of malignant neoplasm [email or web address] Not available 2024 10:55:15 Mother Diabetes mellitus [email or web address] Not available 2024 10:55:29 Mother Kidney disease [email or web address] Not available 2024 10:55:53 Sister Heart disease [email or web address] Not available 2024 10:55:45 Father Heart disease [email or web address] Not available 2024 10:55:45 Medical History Condition Response ARTHRITIS Y Gynecological HistoryNo gynecological history recorded. Obstetrics History GPAL:G 0 P 0 0 0 0 Past Encounters Encounter ID Performer Location Encounter Start Date Encounter Closed Date Diagnosis/Indication Diagnosis SNOMED-CT Code Diagnosis ICD10 Code Diagnosis Note [id number] Nba Winn MD [facility] [place] [address] [place] [address] 09/09/2022 00:00:00 09/09/2022 10:53:37 [id number] Nba Winn MD [facility] [place] [address] [place] [address] 10/14/2022 11:12:38 10/14/2022 12:33:57 Pain of left knee joint 6875024667 74840 M25.562 [id number] Nba Winn MD [facility] [place] [address] [place] [address] 02/15/2023 10:18:48 02/15/2023 12:18:14 Osteoarthritis of left knee joint 7763471119 57331 M17.12 [id number] Nba Winn MD [facility] [place] [address] [place] [address] 05/19/2023 14:02:56 05/19/2023 14:49:14 Osteoarthritis of left knee joint 9936664720 57934 M17.12 Z79.1 [id number] Nba Winn MD [facility] [place] [address] [place] [address] 08/18/2023 13:50:01 08/18/2023 15:10:31 Osteoarthritis of left knee joint 8770117690 66853 M17.12 Z79.1 Pain of le ft knee joint 7545020370 28083 M25.318 [id number] Kishan Gautam MD [facility] [place] [address] [place] [address] 11/24/2023 10:19:00 11/24/2023 11:23:00 Osteoarthritis of left knee joint 1171340508 47192 M17.12 Z79.1 Pain of le ft knee joint 1740043328 53979 M25.640 [id number] Kishan Gautam MD [facility] [place] [address] [place] [address] 02/22/2024 10:45:52 02/22/2024 11:25:14 Pain of left knee joint 2246106400 39906 M25.562 Osteoarthr itis of left knee joint 5428330649 03912 M17.12 Z79.1 [id number] Kishan Gautam MD [facility] [place] [address] [place] [address] 05/24/2024 10:11:31 05/24/2024 10:41:53 Osteoarthritis of left knee joint 8275137919 76988 M17.12 Z79.1 Pain of le ft knee joint 9910450738 99148 M25.620 [id number] MD FLORES Rodriguez[facility] [place] [address] [place] [address] 11/22/2024 10:40:56 11/22/2024 11:17:47 Osteoarthritis of left knee joint 2524866670 70554 M17.12 Z79.1 Pain of le ft knee joint 2495804600 68662 M25.562 Health Concerns Section Related Observation LastModified by Organization Detai ls LastModified Time None Recorded Concern Status LastModified by Organization Details LastModified Time None Recorded Advance Directives Directive None Recorded Payers Encounter Date Sequence Insurance Name Policy Number Policy Pereira Covered Member ID Pereira Member ID Guarantor Name 08/18/2023 1 [employer] [id number] Yesenia Angel [id number] Yesenia Angel 11/24/2023 1 [employer] [id number] Yesenia Angel [id number] Yesenia Angel 02/22/2024 1 [employer] [id number] Yesenia Angel [id number] Yesenia Angel 05/24/2024 1 [employer] [id number] Yesenia Angel [id number] Yesenia Angel 11/22/2024 1 [employer] [id number] Yesenia Angel [id number] Yesenia Angel Notes Date Note Type Note Provider Name and Address Organization Details Recorded Time 08/18/2023 text/html Patient returns complaining of left knee pain. She had a shot of cortisone done 3 months ago here. She states this gave her excellent relief but now her pain has started to come back. She has moderately severe primary osteoarthritis particularly the medial compartment there are small marginal osteophytes off the medial side of the joint. She denies any new trauma or injury no new symptoms or complaints no effusion or swelling no erythema heat or other signs of infection. She has aching pain mostly medially which corresponds to her x-ray findings. She comes in today requesting a repeat cortisone injection in the left knee. MONIKA Moody [address], [place], [address], [employer] [facility] [employer] 08/18/2023 14:21:14 11/24/2023 text/html Patient returns complaining of left knee pain she has had a previous partial medial meniscectomy many years ago she is developed some medial-sided osteoarthritis. She comes in every few months for cortisone injections it has been 3 months since her last injection she would like another 1 today she has medial-sided knee pain notes occasional swelling if she overdoes it. Denies any new trauma or injury no new symptoms or complaints if she stands or walks for too long of a time she has pain at about an 8 on a scale of 1-10 she does take meloxicam daily which helps somewhat shots worked better for her. She would like another shot today. Past medical history sheet was reviewed and signed on the intake sheet of today's date drug allergies current medications family social history previous surgical history 10 point review of systems was reviewed and discussed in detail today with the patient. MONIKA Moody [address], [address], [place], [address], [employer] [facility] [employer] 11/24/2023 11:22:06 02/22/2024 text/html Patient returns requesting a repeat cortisone injection left knee. She has had a previous partial medial meniscectomy many years ago has developed medial-sided osteoarthritis which is moderate in nature. She is significant narrowing in the medial and patellofemoral articulation. The patellofemoral articulation shows near kply-aj-dbed changes on the corners of the joint. She states shots of cortisone gave her excellent relief they last just about 3 months she comes in today for a repeat injection denies any new symptoms no new trauma or injury. Has no effusion or swelling no erythema heat or other signs of infection no locking or catching or mechanical symptoms. MONIKA Moody [address], [place], [address], [facility] [employer] [facility] 02/22/2024 11:25:37 05/24/2024 text/html Patient returns complaining of left knee pain 3 months ago she had a shot of cortisone this gave her excellent relief last week or so she started to have more pain again. She denies any new trauma or injury. She has significant narrowing in the medial compartment and patellofemoral articulation of the left knee. The left knee shows some hypertrophic bone formation around the medial and lateral femoral condyles on the sunrise view. She denies any effusion or swelling mechanical symptoms just aching pain worse with activity somewhat relieved by rest she states the pain is about a 6 on a scale 1-10 today. She comes in today requesting repeat cortisone injection left knee. She also has run out of meloxicam she was asking about a refill on this today. MONIKA Moody [address], [address], [place], [address], [employer] [facility] [employer] 05/24/2024 10:43:58 11/22/2024 text/html The patient retu rns for recheck of her left knee. I saw her 6 months ago she had a shot of cortisone which gave her excellent relief. She was doing very well until recently when she started back into her bowling league, she states squatting pivoting during bowling activities aggravates her knee. She has moderate primary osteoarthritis with narrowing in the medial and patellofemoral compartments. It has been more than a year since her last x-rays we are going to get new x-rays today. She has had no new trauma or injury other than the fact that she has been more active as described above. She states she takes meloxicam daily but has run out she needs a refill on that. When she stops taking the meloxicam she does note that she has more pain and a little bit of swelling in the knee. She comes in today requesting a repeat cortisone injection as well. Currently she states her pain is about a 5 on a scale of 1-10. A new past medical history sheet was reviewed and signed on the intake sheet of today's date drug allergies current medications family social history previous surgical history 10 point review of systems was reviewed and discussed in detail today with the patient. MONIKA Moody [address] [place] [address], [facility] [address], [place], [address], [place] [facility] [place] [employer] 11/22/2024 11:17:34 OBGyn Episode No OBEpisode recorded.
== END 2025-01-15 12:52 | disposition home or self-care (01) ==
LOC: CHSIMG 12:52
PROVIDERS: PCP Family Medicine; Visit Provider Family Medicine
DX: Z12.31 Encounter for screening mammogram for malignant neoplasm of breast (principal)
CPT/HCPCS: 77063; 77067